=== PATIENT | male | born 1955 | race Caucasian/White ===

== ENCOUNTER 2017-03-16 13:59 | Observation (INO) ==
[2017-03-16] MEDS ORDERED: Acetaminophen 325 MG TABLET PO ONE (15:58)
[2017-03-16] MEDS ORDERED: 0.9 % Sodium Chloride 1,000 ML IVC ONE (15:58)
[2017-03-16] MEDS ORDERED: *HR* OxyCODONE/APAP 5/325 TABLET PO ONE (16:00)
--- NOTE | 2017-03-16 16:24 | Emergency Department Note ---
Disposition Clinical Impression: Dehydration Fever Qualifiers: Fever type: unspecified Qualified Code(s): R50.9 - Fever, unspecified Disposition: Admitted As Inpatient Condition: Good General Adult HPI - General Chief complaint: ED General Medical Stated complaint: multiple complaints Time Seen by Provider: 03/16/17 15:15 Source: patient, family Mode of arrival: private vehicle Limitations: no limitations Nursing Notes Reviewed: Yes Vital Signs Reviewed: Yes - History of Present Illness HPI Narrative: Patient presents to the ED with multiple complaints. States his sugars have been running "high" over the past week after recently being diagnosed with early diabetes one month ago. States she has been checking his sugars and they have ranged anywhere from 90 to 190. He is not any medications for his diabetes yet and is trying diet control. He reports intermittent fever with a max temp of 101.8 over the past 4 days. States he has had a mild generalized headache and has muscle aches. States he has had no appetite for the past several days and has also been experiencing some chills. Reports some decreased urination but no change in color or odor. No dysuria. No abdominal pain. He has had nausea but no vomiting, diarrhea or constipation. No chest pain or shortness of breath. No URI symptoms. He does complain of some back and right shoulder pain which is chronic for him for which he takes narcotic pain medication and a muscle relaxer as needed, prescribed by his PCP, and is under the care of orthopedics. States he has been taking aspirin, Tylenol and ibuprofen which will alleviate his fever but then it will return. Denies any recent illness although he was on antibiotics for an abscessed tooth 5 weeks ago. No recent travel or sick contacts. He wears CPAP at night. He is an ex- smoker but quit 14 years ago. He rarely drinks alcohol. He does admit to occasional marijuana use with last use 1 week ago. States he is coming in because he just does not feel "right" or "well". Pain Scale: 7 - Related Data Home Medications Medication Instructions Recorded Confirmed Chlorthalidone 25 mg PO DAILY 03/16/17 03/16/17 CloNIDine HCl [Kapvay] 0.1 mg PO BID 03/16/17 03/16/17 Fenofibrate 160 mg PO DAILY 03/16/17 03/16/17 Omeprazole [PriLOSEC] 40 mg PO DAILY 03/16/17 03/16/17 Oxycodone HCl/Acetaminophen 1 each PO DAILY PRN 03/16/17 03/16/17 [Percocet 5-325 mg Tablet] Promethazine [Phenergan] 25 mg PO DAILY PRN 03/16/17 03/16/17 Symbicort 160/4.5 03/16/17 Tamsulosin HCl [Flomax] 0.4 mg PO DAILY 03/16/17 03/16/17 Tudorza Pressair 03/16/17 Zanaflex 4 mg PO DAILY PRN 03/16/17 03/16/17 Allergies Allergy/AdvReac Type Severity Reaction Status Date / Time No Known Allergies Allergy Verified 12/27/16 19:54 Constitutional: Reports: fever, chills, weakness (generalized). Denies: weight change Eyes: Denies: eye pain, eye discharge, vision change ENT ED: Denies: ear pain, throat pain, dental pain, hearing loss, epistaxis, congestion, dysphagia Cardiovascular: Denies: chest pain, palpitations, dyspnea on exertion, edema, syncope Respiratory: Denies: cough, dyspnea, wheezes, hemoptysis, stridor Gastrointestinal: Reports: nausea. Denies: abdominal pain, vomiting, diarrhea, constipation Genitourinary: Denies: urgency, dysuria, frequency, hematuria Musculoskeletal: Reports: myalgia (generalized) Integumentary: Denies: rash, abrasion, lesions Neurological: Reports: headache Psychiatric: Denies: anxiety, depression, suicidal thoughts, homicidal thoughts , auditory hallucinations, visual hallucinations Endocrine: Reports: fatigue Hematological/Lymphatic: Denies: easy bleeding, easy bruising Allergic/Immunologic: Denies: facial swelling, urticaria Past Medical History - Past Medical History Medical history: Reports: no medical history Psychiatric history: Reports: no psych history - Social History Smoking Status: Former smoker Smokeless Tobacco Status: No Alcohol use: Reports: rarely Drug use: Reports: marijuana Physical Exam - General Limitations: no limitations General appearance: alert, in no apparent distress - Head Head exam: atraumatic, normocephalic, normal inspection - Eye Eye exam: Present: normal appearance, PERRL, EOMI - ENT ENT exam: normal exam, normal oropharynx, mucous membranes dry - Neck Neck exam: Present: normal inspection, full ROM, trachea midline - Chest Chest inspection: Present: normal inspection, symmetric chest wall rise - Respiratory Respiratory exam: Present: normal lung sounds bilaterally - Cardiovascular Cardiovascular exam: Present: regular rate, normal rhythm, normal heart sounds - Abdominal Exam Abdominal exam: Present: soft, Non-Tender, normal bowel sounds. Absent: tenderness, distention, guarding, rebound, rigidity - Extremities Exam Extremities exam: Present: normal inspection, full ROM. Absent: tenderness, pedal edema - Back Exam Back exam: Present: normal inspection, full ROM. Absent: tenderness, CVA tenderness (R), CVA tenderness (L) - Neurological Exam Neurological exam: Present: alert, oriented X3, CN II-XII intact, normal gait. Absent: motor sensory deficit - Psychiatric Psychiatric exam: Present: normal affect, normal mood - Skin Skin exam: Present: warm, dry, intact, normal color Course Course Narrative: Result presents to the ED with report of elevated glucose readings, intermittent fever, headache, myalgia, chills and nausea. He is afebrile and normotensive on arrival. Physical exam is unremarkable with no obvious focal source of infection. He may have a viral syndrome. Will obtain chest x-ray and routine labs further evaluation. He does appear clinically dehydrated but is nontoxic in appearance. We will give IV fluids. Fingerstick glucose on arrival was 129. - Reevaluation(s) Reevaluation #1: Chest x-ray is negative. Laboratory studies show a leukocytosis of 14.2. The lumen is 27 and creatinine was 1.72 with no recent baseline for comparison. Serum glucose was 123. No other significant abnormalities noted on labs. Patient did report of feeling feverish again and repeat temperature check was 101.8. He was given Tylenol for the fever as well as Percocet for his persistent chronic back and shoulder pain. While there is no focus of infection found the does appear dehydrated. He is also complaining of persistent nausea. I feel he would benefit from an observation admission with continued hydration, anitbiotics and monitoring for his persistent intermittent fevers. Blood cultures have been obtained. Fever has resolved with Tylenol. Discussed all test results with patient and he is in agreement with admission, stating he still does not feel well and is not comfortable going home. I spoke to the hospitalist executive consultant, Dr. Gordillo, who has agreed to admit the patient. Will start on antibiotics. Vital Signs Temperature 99.6 F 03/16/17 14:00 Pulse Rate 94 03/16/17 14:00 Respiratory Rate 18 03/16/17 14:00 Blood Pressure 125/85 03/16/17 14:00 O2 Sat by Pulse Oximetry 97 03/16/17 14:00 Temperature 98.0 F 03/17/17 06:13 Pulse Rate 84 03/17/17 06:13 Respiratory Rate 18 03/17/17 06:13 Blood Pressure 144/79 03/17/17 06:13 O2 Sat by Pulse Oximetry 98 03/17/17 06:13 Oxygen Delivery Oxygen Delivery Room Air Medical Decision Making - Differential Diagnosis Pneumonia, UTI, viral illness - Medical Records Medical records reviewed: Yes I reviewed the patient's medical records. - Lab Data Lab results reviewed: Yes I reviewed the patient's lab results. Result diagrams: 03/17/17 05:57 03/17/17 05:57 Lab Results 03/16/17 03/16/17 03/16/17 Range/Units 15:51 16:24 16:24 WBC 14.2 H (4.3-11.1) K/mcL RBC 5.05 (4.19-5.50) M/mcL Hgb 14.2 (12.9-16.9) g/dL Hct 41.0 (37.5-50.1) % MCV 81.2 L (83.0-100.0) fL MCH 28.1 (28.0-33.3) pg MCHC 34.6 (31.6-35.5) g/dL RDW 13.1 (11.5-14.5) % Plt Count 351 (140-400) K/mcL MPV 9.9 (9.4-12.4) fL Immature Gran % 0.7 (0-4) % Seg Neutrophils % 88.6 % Lymphocytes % 1.9 % Monocytes % 8.4 % Eosinophils % 0.0 % Basophils % 0.4 % Neutrophils # 12.6 H (1.6-8.9) K/mcL Lymphocytes # 0.3 L (0.6-4.6) K/mcL Monocytes # 1.2 (0.0-1.3) K/mcL Eosinophils # 0.0 (0.0-0.6) K/mcL Basophils # 0.1 (0.0-0.2) K/mcL VBG Lactic Acid (0.5-2.2) mmol/L Sodium 134 L (136-145) mEq/L Potassium 3.2 L (3.5-4.5) mEq/L Chloride 93 L (98-109) mEq/L Carbon Dioxide 16 L (19-29) mEq/L BUN 27 H (8-26) mg/dL Creatinine 1.72 H (0.72-1.25) mg/dL Est GFR ( Amer) 49 L (> 60) Est GFR (Non-Af Amer) 41 L (> 60) BUN/Creatinine Ratio 16 (6-26) Glucose 123 H (70-99) mg/dL POC Glucose 129 H (58-89) Calculated Osmolality 284 (280-300) Calcium 9.6 (8.6-10.8) mg/dL Total Bilirubin (0.2-1.2) mg/dL Direct Bilirubin (0.0-0.5) mg/dL Indirect Bilirubin (0.0-1.2) mg/dL AST (5-34) Units/L ALT (0-55) Units/L Alkaline Phosphatase (38-126) Units/L Serum Total Protein (6.0-8.3) g/dL Albumin (3.5-5.0) g/dL Globulin (2.4-3.5) g/dL Albumin/Globulin Ratio (1.1-2.2) Lipase (8-78) Units/L Urine Color (Yellow) Urine Clarity (Clear) Urine pH (5.0-8.0) pH Units Ur Specific [place] (1.010-1.025) Urine Protein (Neg-Trace) mg/dL Urine Glucose (UA) (Normal) mg/dL Urine Ketones (Negative) mg/dL Urine Blood (Negative) Urine Nitrite (Negative) Urine Bilirubin (Negative) Urine Urobilinogen (Normal) mg/dL Ur Leukocyte Esterase (Negative) Urine Microscopic RBC (0-3) per hpf Urine Microscopic WBC (0-3) per hpf Ur Squamous Epith Cells (None-Few) per lpf Ur Renal Epithelial Cell (None-Few) per hpf Urine Bacteria (None-Few) per hpf Hyaline Casts (None-Few) per lpf Granular Casts (None Seen) per lpf Urine Mucus (Few) Ur Culture Indicated? (NO) 03/16/17 03/16/1703/16/17 Range/Units 16:24 16:38 17:57 WBC (4.3-11.1) K/mcL RBC (4.19-5.50) M/mcL Hgb (12.9-16.9) g/dL Hct (37.5-50.1) % MCV (83.0-100.0) fL MCH (28.0-33.3) pg MCHC (31.6-35.5) g/dL RDW (11.5-14.5) % Plt Count (140-400) K/mcL MPV (9.4-12.4) fL Immature Gran % (0-4) % Seg Neutrophils % % Lymphocytes % % Monocytes % % Eosinophils % % Basophils % % Neutrophils # (1.6-8.9) K/mcL Lymphocytes # (0.6-4.6) K/mcL Monocytes # (0.0-1.3) K/mcL Eosinophils # (0.0-0.6) K/mcL Basophils # (0.0-0.2) K/mcL VBG Lactic Acid 1.5 (0.5-2.2) mmol/L Sodium (136-145) mEq/L Potassium (3.5-4.5) mEq/L Chloride (98-109) mEq/L Carbon Dioxide (19-29) mEq/L BUN (8-26) mg/dL Creatinine (0.72-1.25) mg/dL Est GFR ( Amer) (> 60) Est GFR (Non-Af Amer) (> 60) BUN/Creatinine Ratio (6-26) Glucose (70-99) mg/dL POC Glucose (58-89) Calculated Osmolality (280-300) Calcium (8.6-10.8) mg/dL Total Bilirubin 0.5 (0.2-1.2) mg/dL Direct Bilirubin 0.2 (0.0-0.5) mg/dL Indirect Bilirubin 0.3 (0.0-1.2) mg/dL AST 21 (5-34) Units/L ALT 24 (0-55) Units/L Alkaline Phosphatase 65 (38-126) Units/L Serum Total Protein 7.3 (6.0-8.3) g/dL Albumin 2.7 L (3.5-5.0) g/dL Globulin 4.6 H (2.4-3.5) g/dL Albumin/Globulin Ratio 0.6 L (1.1-2.2) Lipase 10 (8-78) Units/L Urine Color Yellow (Yellow) Urine Clarity Cloudy A (Clear) Urine pH 5.5 (5.0-8.0) pH Units Ur Specific [place] 1.020 (1.010-1.025) Urine Protein 30 H (Neg-Trace) mg/dL Urine Glucose (UA) Normal (Normal) mg/dL Urine Ketones 15 H (Negative) mg/dL Urine Blood Negative (Negative) Urine Nitrite Negative (Negative) Urine Bilirubin Moderate H (Negative) Urine Urobilinogen Normal (Normal) mg/dL Ur Leukocyte Esterase Negative (Negative) Urine Microscopic RBC 0-3 (0-3) per hpf Urine Microscopic WBC 3-5 H (0-3) per hpf Ur Squamous Epith Cells Few (None-Few) per lpf Ur Renal Epithelial Cell Few (None-Few) per hpf Urine Bacteria Few (None-Few) per hpf Hyaline Casts Few (None-Few) per lpf Granular Casts Few H (None Seen) per lpf Urine Mucus Few (Few) Ur Culture Indicated? NO (NO) - Radiology Data Radiology results reviewed: Yes I reviewed the patient's radiology results. ITS Impressions Chest X-Ray 03/16/17 15:59 IMPRESSION: Negative portable study. D/ / Britney Gore Cha, MD / Britney Gore Cha, MD Interpreting Provider: Britney Gore Cha, MD
[2017-03-16 16:32] LABS: Basophils # 0.1 K/mcL (0.0-0.2); Basophils % 0.4 %; Hemoglobin 14.2 g/dL (12.9-16.9); Immature Granulocytes % 0.7 % (0-4); Lymphocytes # 0.3 K/mcL (0.6-4.6); Lymphocytes % 1.9 %; Mean Corpuscular HGB Conc 34.6 g/dL (31.6-35.5); Mean Corpuscular Hemoglobin 28.1 pg (28.0-33.3); Mean Corpuscular Volume 81.2 fL (83.0-100.0); Mean Platelet Volume 9.9 fL (9.4-12.4); Monocytes # 1.2 K/mcL (0.0-1.3); Monocytes % 8.4 %; Platelet Count 351 K/mcL (140-400); Red Blood Count 5.05 M/mcL (4.19-5.50); Red Cell Distribution Width 13.1 % (11.5-14.5); Segmented Neutrophils % 88.6 %
[2017-03-16 16:35] LABS: Neutrophils # 12.6 K/mcL (1.6-8.9)
[2017-03-16 16:47] LABS: Bilirubin,Urine Moderate (Negative); Blood,Urine Negative (Negative); Clarity,Urine Cloudy (Clear); Color,Urine Yellow (Yellow); Glucose,Urine (UA) Normal (Normal); Ketones,Urine 15 mg/dL (Negative); Leukocyte Esterase,Urine Negative (Negative); Nitrite,Urine Negative (Negative); PH,Urine 5.5 pH Units (5.0-8.0); Protein,Urine 30 mg/dL (Neg-Trace); Urobilinogen,Urine Normal (Normal)
[2017-03-16 16:54] LABS: RBC,Urine 0-3 per hpf (0-3)
[2017-03-16 16:54] LABS: Calcium 9.6 mg/dL (8.6-10.8); Potassium 3.2 mEq/L (3.5-4.5)
[2017-03-16 16:55] LABS: Bacteria,Urine Few per hpf (None-Few); Granular Casts,Urine Few per lpf (None Seen); Hyaline Casts,Urine Few per lpf (None-Few); Mucus,Urine Few (Few); Renal Epithelial Cells,Urine Few per hpf (None-Few); Squamous Epithelial Cell,Urine Few per lpf (None-Few)
[2017-03-16 18:28] LABS: Albumin 2.7 g/dL (3.5-5.0); Albumin/Globulin Ratio 0.6 (1.1-2.2); Bilirubin,Direct 0.2 mg/dL (0.0-0.5); Bilirubin,Indirect 0.3 mg/dL (0.0-1.2); Bilirubin,Total 0.5 mg/dL (0.2-1.2); Globulin 4.6 g/dL (2.4-3.5); Total Protein 7.3 g/dL (6.0-8.3)
[2017-03-16] MEDS ORDERED: Azithromycin 500 MG in D5% in Water 250 ML IVPB ONE (19:15)
[2017-03-16] MEDS ORDERED: 0.9 % Sodium Chloride 1,000 ML IVC SCH (19:15)
[2017-03-16] MEDS ORDERED: Naloxone 0.4 MG/ML INJ IVP PRN ×2 (19:15→20:28)
[2017-03-16] MEDS ORDERED: Acetaminophen 325 MG TABLET PO PRN ×2 (19:15→20:28)
[2017-03-16] MEDS ORDERED: Dextrose Gel 15 GM PO PRN ×4 (19:19→20:28)
[2017-03-16] MEDS ORDERED: D5% in Water 1,000 ML IVC PRN ×2 (19:19→20:28)
[2017-03-16] MEDS ORDERED: *HR* Dextrose 50 % in Water (Syg) 50 ML SYRINGE IVP PRN ×2 (19:19→20:28)
[2017-03-16] MEDS ORDERED: Ondansetron 4 MG/2 ML VIAL IVP ONE ×2 (20:01→20:28)
[2017-03-16] MEDS ORDERED: *HR* OxyCODONE/APAP 5/325 TABLET PO PRN (20:28)
[2017-03-16] MEDS ORDERED: Insulin LISPRO 300 UNITS/3 ML VIAL SQ SCH (21:00)
[2017-03-16] MEDS: Insulin LISPRO 300 UNITS/3 ML VIAL SQ SCH (21:53)
[2017-03-16] MEDS: cloNIDine HCl 0.1 MG TABLET PO SCH (21:57)
[2017-03-16] MEDS ORDERED: Ondansetron 4 MG/2 ML VIAL IVP PRN (22:26)
[2017-03-16] MEDS ORDERED: *HR* Promethazine 25 MG/ML VIAL IVP PRN (22:28)
[2017-03-16] MEDS: tiZANidine 4 MG TABLET PO PRN (23:07)
[2017-03-16] MEDS: 0.9 % Sodium Chloride 1,000 ML IVC SCH (23:42)
[2017-03-17] MEDS: 0.9 % Sodium Chloride 1,000 ML IVC SCH (05:08)
[2017-03-17 06:45] LABS: Basophils % 0.3 %; Hematocrit 38.7 % (37.5-50.1); Hemoglobin 13.2 g/dL (12.9-16.9); Immature Granulocytes % 1.9 % (0-4); Lymphocytes # 0.3 K/mcL (0.6-4.6); Lymphocytes % 2.2 %; Mean Corpuscular HGB Conc 34.1 g/dL (31.6-35.5); Mean Corpuscular Hemoglobin 27.9 pg (28.0-33.3); Mean Corpuscular Volume 81.8 fL (83.0-100.0); Mean Platelet Volume 9.9 fL (9.4-12.4); Monocytes # 0.6 K/mcL (0.0-1.3); Monocytes % 5.3 %; Neutrophils # 10.6 K/mcL (1.6-8.9); Platelet Count 351 K/mcL (140-400); Red Blood Count 4.73 M/mcL (4.19-5.50); Segmented Neutrophils % 90.3 %
[2017-03-17 06:49] LABS: BUN/Creatinine Ratio 20 (6-26); Blood Urea Nitrogen 29 mg/dL (8-26); Carbon Dioxide 25 mEq/L (19-29); Chloride 96 mEq/L (98-109); Glucose 173 mg/dL (70-99); Osmolality,Calculated 294 (280-300); Potassium 2.9 mEq/L (3.5-4.5); Sodium 137 mEq/L (136-145); eGFR For African Americans > 60 (> 60); eGFR For Non-African Americans 50 (> 60)
[2017-03-17] MEDS ORDERED: Insulin LISPRO 300 UNITS/3 ML VIAL SQ SCH (07:30)
--- NOTE | 2017-03-17 08:46 | Internal Med History&Physical ---
Date of Encounter: 03/17/17 Time of Encounter: 08:15 Assessment and Plan (1) Fever Current visit: Yes Status: Acute Etiology not of venous. Suspect viral origin likely. He has been started on Rocephin and Zithromax. Will recheck labs in a.m. Qualifiers: Fever type: unspecified Qualified Code(s): R50.9 - Fever, unspecified (2) Azotemia Current visit: Yes Status: Acute Suspect due to diuretic use with possible underlying chronic kidney disease. Will hold diuretics and give IV fluids and recheck labs in a.m. (3) Hypokalemia Current visit: Yes Status: Acute Probably secondary to diuretic use. We will give supplemental potassium and hold diuretics. Recheck labs in a.m. (4) Hypertension Current visit: Yes Status: Chronic Continue clonidine and monitor blood pressure. Qualifiers: Hypertension type: essential hypertension Qualified Code(s): I10 - Essential (primary) hypertension Internal Medicine - H&P: HPI Chief complaint: Fever Admitted From: Home Plans for Post Hospital Care: Home History of present illness: Mr. Hummel is a 61 year old male who came to emergency room stating he had intermittent fevers over the preceding 4 days. There was occasional sensation of chills also. He had no cough, headache, nausea, vomiting, or other infectious symptoms. He had slight worsening of his chronic back pain. He was evaluated in emergency room and found to have leukocytosis with left shift. Chest x-ray and UA were generally unremarkable. He was admitted to [facility] floor for ongoing care needs. He states he feels slightly improved at the present time. He has not had previous similar episodes. He states he did have an abscessed tooth extracted approximately 2 months ago. Past Med Surg Social Fam HX - Past Medical History Medical history: diabetes, GERD, hyperlipidemia, hypertension Psychiatric history: no psych history - Past Surgical History Surgical History: cholecystectomy, herniorrhaphy - Social History Smoking Status: Former smoker Smokeless Tobacco Status: No Alcohol use: rarely Drug use: marijuana - Family History Mother Living Status: Still Living Hx Family Cardiac Disorders: Yes (pacemaker) Internal Medicine - H&P: Meds Chlorthalidone 25 mg PO DAILY 03/16/17 [History] CloNIDine HCl [Kapvay] 0.1 mg PO BID 03/16/17 [History] Fenofibrate 160 mg PO DAILY 03/16/17 [History] Omeprazole [PriLOSEC] 40 mg PO DAILY 03/16/17 [History] Oxycodone HCl/Acetaminophen [Percocet 5-325 mg Tablet] 1 each PO DAILY PRN 03/16 [History] Promethazine [Phenergan] 25 mg PO DAILY PRN 03/16/17 [History] Symbicort 160/4.5 03/16/17 [History] Tamsulosin HCl [Flomax] 0.4 mg PO DAILY 03/16/17 [History] Tudorza Pressair 03/16/17 [History] Zanaflex 4 mg PO DAILY PRN 03/16/17 [History] 3 Allergy/AdvReac Type Severity Reaction Status Date / Time No Known Allergies Allergy Verified 12/27/16 19:54 All Systems PM: A 10-system review of systems was performed and is negative for pertinent findings except as documented above in the HPI. Review of systems: Gen.: He states his weight has decreased approximately 25 pounds in the past 5 weeks, intentionally Cardiovascular: He has history of hypertension but denies TN heart failure angina DVT or pulmonary embolus Respiratory: He smoked from age [age] up to 3 packs per day. He has a diagnosis of COPD but does not use home oxygen. He has been diagnosed with sleep apnea and uses BiPAP at bedtime GI: He has had cholecystectomy. He has been diagnosed with an NAFLD and GERD. He denies other disorders of his liver or exocrine pancreas. He states he had an unremarkable colonoscopy approximately 2006 : He has BPH symptoms. He denies known chronic kidney disease or other kidney bladder prostate disorders Neurologic: He denies large distribution strokes or seizures Endocrine: He was diagnosed with DM 2 a few weeks ago. He does not take medication at this time for the diabetes. He has hyperlipidemia but denies thyroid disease Hematology/oncology: He denies blood disorders cancers or anemia Psychiatric: He has feelings of anxiety and depression Musk skeletal: He has chronic low back pain and degenerative disc disease. He has had bilateral knee arthroscopic surgeries. - Constitutional Vitals: Temp Pulse Resp BP Pulse Ox 98.0 F 84 18 144/79 98 03/17/17 06:13 03/17/17 06:13 03/17/17 06:13 03/17/17 06:13 03/17/17 06:13 Exam: Gen.: He is a well-developed well-nourished male who appears in no acute distress HEENT: Head is atraumatic and normocephalic. Eyes: EOMI. There is no scleral icterus. Mouth: Mucosa is moist. Neck: Supple and nontender. There is no thyromegaly or adenopathy noted. Heart: Regular without murmurs gallops or ectopics Lungs: No wheezes or crackles are heard. Abdomen: Soft and nontender. No masses or guarding are noted. Extremities: There is no cyanosis edema or clubbing noted. Dorsalis pedis and posttibial pulses are 1-2 over 2 bilaterally. 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 Cranial nerves : Smile is symmetric. Forehead wrinkles bilaterally. Tongue protrudes midline. EOMI. Motor: There is no pronator drift. Cerebellar: Finger to nose is intact bilaterally. Skin: Warm and dry Internal Med - H&P Results - Labs CBC & Chem 7: 03/17/17 05:57 03/17/17 05:57 Labs: Short CBC 03/17/17 Range/Units 05:57 WBC 11.7 H (4.3-11.1) K/mcL Hgb 13.2 (12.9-16.9) g/dL Hct 38.7 (37.5-50.1) % Plt Count 351 (140-400) K/mcL [facility] 03/17/17 05:57 Sodium 137 Potassium 2.9 L Chloride 96 L Carbon Dioxide 25 BUN 29 H Creatinine 1.44 H Glucose 173 H Calcium 9.0 - VTE Reasons for not Prescribing Prophylaxis: Treatment not Indicated - Low risk for VTE
[2017-03-17] MEDS ORDERED: *HR* Promethazine 25 MG/ML VIAL IM ONE (09:31)
[2017-03-17] MEDS: 0.45 % Sodium Chloride w/KCl 20 MEQ/1,000 ML MLS IVC SCH ×2 (10:02→20:21)
[2017-03-17] MEDS: Budesonide/Formoterol 160/4.5 MDI IH SCH ×2 (10:14→22:57)
[2017-03-17] MEDS: cloNIDine HCl 0.1 MG TABLET PO SCH ×2 (10:20→20:15)
[2017-03-17] MEDS: Lactobacillus 1 EACH CAP.SPRINK PO SCH ×2 (10:20→20:15)
[2017-03-17] MEDS: tiZANidine 4 MG TABLET PO PRN (10:21)
[2017-03-17] MEDS: *HR* OxyCODONE/APAP 5/325 TABLET PO PRN (10:21)
[2017-03-17] MEDS: Fenofibrate 54 MG TABLET PO SCH (10:21)
[2017-03-17] MEDS: TUDORZA PRESSAIR PO SCH (10:23)
[2017-03-17] MEDS: Insulin LISPRO 300 UNITS/3 ML VIAL SQ SCH ×4 (10:24→20:23)
[2017-03-17 11:19] LABS: Platelet Estimate Normal (Normal); Polychromasia 1+ (Not Present)
[2017-03-17] MEDS: Azithromycin 500 MG in D5% in Water 250 ML IVPB SCH (20:14)
[2017-03-18] MEDS: 0.45 % Sodium Chloride w/KCl 20 MEQ/1,000 ML MLS IVC SCH ×3 (06:07→23:35)
[2017-03-18 06:14] LABS: Basophils # 0.1 K/mcL (0.0-0.2); Basophils % 0.5 %; Eosinophils % 0.1 %; Hematocrit 37.9 % (37.5-50.1); Immature Granulocytes % 0.8 % (0-4); Lymphocytes # 0.7 K/mcL (0.6-4.6); Lymphocytes % 7.7 %; Mean Corpuscular HGB Conc 34.3 g/dL (31.6-35.5); Mean Corpuscular Hemoglobin 27.8 pg (28.0-33.3); Mean Corpuscular Volume 81.2 fL (83.0-100.0); Mean Platelet Volume 9.5 fL (9.4-12.4); Neutrophils # 7.6 K/mcL (1.6-8.9); Platelet Count 345 K/mcL (140-400); Red Blood Count 4.67 M/mcL (4.19-5.50); Segmented Neutrophils % 79.9 %
[2017-03-18 06:31] LABS: BUN/Creatinine Ratio 19 (6-26); Blood Urea Nitrogen 21 mg/dL (8-26); Calcium 9.3 mg/dL (8.6-10.8); Carbon Dioxide 27 mEq/L (19-29); Chloride 97 mEq/L (98-109); Glucose 120 mg/dL (70-99); Magnesium 1.5 mg/dL (1.6-2.6); Osmolality,Calculated 290 (280-300); Potassium 2.6 mEq/L (3.5-4.5); Sodium 138 mEq/L (136-145); eGFR For African Americans > 60 (> 60); eGFR For Non-African Americans > 60 (> 60)
[2017-03-18] MEDS: Insulin LISPRO 300 UNITS/3 ML VIAL SQ SCH ×4 (09:12→20:44)
[2017-03-18] MEDS: Fenofibrate 54 MG TABLET PO SCH (09:28)
[2017-03-18] MEDS: Lactobacillus 1 EACH CAP.SPRINK PO SCH ×2 (09:29→20:41)
[2017-03-18] MEDS: cloNIDine HCl 0.1 MG TABLET PO SCH ×2 (09:29→20:40)
[2017-03-18] MEDS: Budesonide/Formoterol 160/4.5 MDI IH SCH ×2 (09:32→22:28)
--- NOTE | 2017-03-18 10:41 | Internal Med Progress Note ---
Date of Encounter: 03/18/17 Time of Encounter: 10:30 - Assessment and plan (1) Fever Current Visit: Yes Status: Acute Assessment and plan: March 18. Etiology not obvious. Leukocytosis now resolved and left shift improved. Continue Rocephin and Zithromax. Qualifiers: Fever type: unspecified Qualified Code(s): R50.9 - Fever, unspecified (2) Azotemia Current Visit: Yes Status: Acute Assessment and plan: March 18. Resolved (3) Hypokalemia Current Visit: Yes Status: Acute Assessment and plan: March 18. Slightly worsened despite IV and oral potassium supplementation. Will remain off diuretic and increase oral potassium. Recheck labs in a.m. (4) Hypertension Current Visit: Yes Status: Chronic Assessment and plan: March 18. Significant fluctuations noted. Remain off chlorthalidone. Continue clonidine. Qualifiers: Hypertension type: essential hypertension Qualified Code(s): I10 - Essential (primary) hypertension (5) Pulmonary nodules Current Visit: Yes Status: Acute Assessment and plan: March 18. Will order repeat chest CT - Subjective Interval history: March 18. He has no new complaints and feels better but not back to normal baseline yet. His appetite is slightly improved. - Constitutional Vitals: Temp Pulse Resp BP Pulse Ox 99.0 F 77 17 123/75 94 03/18/17 06:41 03/18/17 06:41 03/18/17 09:37 03/18/17 06:41 03/18/17 10:03 Exam: He is resting comfortably in bed and appears in no acute distress. His affect is cheerful. I reviewed his medications and lab results. I reviewed his archived reports and note chest CT May 2015 showed pulmonary nodules with repeat CT recommended in 3 months. This was not performed. Internal Medicine: Result - Labs CBC & Chem 7: 03/18/17 05:55 03/18/17 05:55 Labs: Short CBC 03/17/17 03/18/17 Range/Units 05:57 05:55 WBC 9.5 (4.3-11.1) K/mcL Hgb 13.0 (12.9-16.9) g/dL Hct 37.9 (37.5-50.1) % Plt Count 345 (140-400) K/mcL Neutrophils # 10.6 H 7.6 (1.6-8.9) K/mcL [facility] 03/18/17 05:55 Sodium 138 Potassium 2.6 L Chloride 97 L Carbon Dioxide 27 BUN 21 Creatinine 1.09 Glucose 120 H Calcium 9.3 - VTE Reasons for not Prescribing Prophylaxis: Treatment not Indicated - Low risk for VTE Consult Discharge Plan - Plan Instructions: How to Check Your Blood Sugar (GEN), Diabetic Hypoglycemia (GEN) , Managing Diabetes During Sick Days (GEN)
[2017-03-18] MEDS: TUDORZA PRESSAIR PO SCH (11:18)
[2017-03-18] MEDS: Magnesium Oxide 400 MG TABLET PO SCH ×2 (11:49→20:41)
[2017-03-18] MEDS: tiZANidine 4 MG TABLET PO PRN (16:28)
[2017-03-18] MEDS: *HR* OxyCODONE/APAP 5/325 TABLET PO PRN (16:29)
[2017-03-18 17:26] LABS: % Iron Saturation 12 % (20-55); Iron 29 mcg/dL (65-175); Transferrin 174 mg/dL (174-364)
[2017-03-18 17:48] LABS: Ferritin 1488 ng/ml (22-275)
[2017-03-18] MEDS: Azithromycin 500 MG in D5% in Water 250 ML IVPB SCH (20:41)
[2017-03-19 06:27] VITALS: BP 119/70
[2017-03-19 06:52] LABS: Basophils # 0.1 K/mcL (0.0-0.2); Basophils % 0.7 %; Eosinophils # 0.1 K/mcL (0.0-0.6); Eosinophils % 0.7 %; Hematocrit 37.3 % (37.5-50.1); Hemoglobin 12.9 g/dL (12.9-16.9); Immature Granulocytes % 0.9 % (0-4); Lymphocytes # 0.9 K/mcL (0.6-4.6); Lymphocytes % 11.4 %; Mean Corpuscular HGB Conc 34.6 g/dL (31.6-35.5); Mean Corpuscular Hemoglobin 27.9 pg (28.0-33.3); Mean Corpuscular Volume 80.6 fL (83.0-100.0); Mean Platelet Volume 9.3 fL (9.4-12.4); Monocytes # 1.1 K/mcL (0.0-1.3); Monocytes % 13.9 %; Neutrophils # 5.5 K/mcL (1.6-8.9); Platelet Count 361 K/mcL (140-400); Red Blood Count 4.63 M/mcL (4.19-5.50); Segmented Neutrophils % 72.4 %
[2017-03-19 07:10] LABS: BUN/Creatinine Ratio 15 (6-26); Blood Urea Nitrogen 14 mg/dL (8-26); Calcium 9.2 mg/dL (8.6-10.8); Carbon Dioxide 27 mEq/L (19-29); Chloride 96 mEq/L (98-109); Glucose 117 mg/dL (70-99); Osmolality,Calculated 290 (280-300); Potassium 2.7 mEq/L (3.5-4.5); Sodium 139 mEq/L (136-145); eGFR For African Americans > 60 (> 60); eGFR For Non-African Americans > 60 (> 60)
[2017-03-19] MEDS: 0.9 % Sodium Chloride 1,000 ML IVC SCH (07:50)
[2017-03-19 09:35] LABS: Hemoglobin A1C 6.6 %
--- NOTE | 2017-03-19 10:06 | Discharge Summary ---
Date of Encounter: 03/19/17 Time of Encounter: 09:50 - Discharge Diagnosis (1) Pneumonia Priority: Primary Status: Acute Qualifiers: Pneumonia type: due to unspecified organism Laterality: left Lung location: upper lobe of lung Qualified Code(s): J18.1 - Lobar pneumonia, unspecified organism (2) Pulmonary nodules Priority: Secondary Status: Acute (3) Azotemia Priority: Secondary Status: Resolved (4) Hypokalemia Priority: Secondary Status: Acute (5) Hypertension Priority: Secondary Status: Chronic Qualifiers: Hypertension type: essential hypertension Qualified Code(s): I10 - Essential (primary) hypertension - Discharge Medications Prescriptions: Cefuroxime PO [Ceftin] 500 mg PO Q12HR #10 tablet Azithromycin [Zithromax] 250 mg PO DAILY #5 tablet Lactobacillus [Culturelle] 1 each PO BID #10 cap.sprink Magnesium Oxide [Mag-Ox] 400 mg PO DAILY #7 tablet Potassium Chloride 20 meq PO BID #14 tab.er.prt Home Medications: CloNIDine HCl [Kapvay] 0.1 mg PO BID 03/16/17 [History] Fenofibrate 160 mg PO DAILY 03/16/17 [History] Omeprazole [PriLOSEC] 40 mg PO DAILY 03/16/17 [History] Oxycodone HCl/Acetaminophen [Percocet 5-325 mg Tablet] 1 each PO DAILY PRN 03/16 [History] Promethazine [Phenergan] 25 mg PO DAILY PRN 03/16/17 [History] Symbicort 160/4.5 03/16/17 [History] Tamsulosin HCl [Flomax] 0.4 mg PO DAILY 03/16/17 [History] Tudorza Pressair 03/16/17 [History] Zanaflex 4 mg PO DAILY PRN 03/16/17 [History] Azithromycin [Zithromax] 250 mg PO DAILY #5 tablet 03/19/17 [Rx] Cefuroxime PO [Ceftin] 500 mg PO Q12HR #10 tablet 03/19/17 [Rx] Lactobacillus [Culturelle] 1 each PO BID #10 cap.sprink 03/19/17 [Rx] Magnesium Oxide [Mag-Ox] 400 mg PO DAILY #7 tablet 03/19/17 [Rx] Potassium Chloride 20 meq PO BID #14 tab.er.prt 03/19/17 [Rx] Allergies/Adverse Reactions: 3 Allergy/AdvReac Type Severity Reaction Status Date / Time No Known Allergies Allergy Verified 12/27/16 19:54 Procedures/tests Complete & Pending: Procedures Performed prior 72 hours Category Date Time Status CT chest wo con [CT] Routine Cat Scan 03/18/17 10:53 Completed Date of admission: 03/16/17 19:49 Primary care physician: Lon Ruby MD - Patient Status Disposition: Home, Self-Care Condition: Good Overall status at discharge: patient is progressing back to baseline - Discharge Instructions Instructions: How to Check Your Blood Sugar (GEN), Diabetic Hypoglycemia (GEN) , Managing Diabetes During Sick Days (GEN) Follow Up With: Lon Ruby MD [Primary Care Provider] - 1 week - Diet and Activity Activity: resume usual activities as tolerated Diet: advance to your usual diet Hospital course: Mr. Hummel is a 61 year old male who came to emergency room stating he had intermittent fevers over the preceding 4 days. There was occasional sensation of chills also. He had no cough, headache, nausea, vomiting, or other infectious symptoms. He had slight worsening of his chronic back pain. He was evaluated in emergency room and found to have leukocytosis with left shift. Chest x-ray and UA were generally unremarkable. He was admitted to [facility] for ongoing care needs. Initial orders were written by the emergency room physician. I saw him on March 17 and performed a history and physical. He was started empirically on Rocephin and Zithromax for fever and leukocytosis. Chest x-ray did not show evidence of infiltrate. Chest CT was ordered to further evaluate for infection and follow-up on pulmonary nodules seen on a [address] scan. [address] showed pneumonia in the left upper lobe and lingula with trace left pleural effusion. There were multiple prominent mediastinal lymph nodes that appeared enlarged from 2015. Radiologist felt they might be reactive to the acute pneumonia and recommended a follow-up contrast enhanced chest CT be done in 3-6 months. I will let his PCP Dr. Ruby arrange this study to be done. I think would be reasonable to do the scan in 2-3 months in view of the worsening lymphadenopathy since 2015, hypokalemia, and smoking history. Chlorthalidone was discontinued and he was treated with supplement potassium for hypokalemia. Will continue potassium supplementation at discharge with a 7 day supply given of KCl. His blood pressure remained satisfactory off chlorthalidone. Magnesium level returned slightly low at 1.5. He will be given a 7 day supply of supplemental magnesium oxide at discharge. Azotemia resolved with administration of IV fluids and withholding diuretics. His BUN and creatinine were 14 and 0.95 respectively on the day of discharge. Hemoglobin A1c returned acceptable at 6.6%. Microcytosis workup returned showing iron 29, transferrin saturation 12%, transferrin 174, and ferritin 1488. Dr. Ruby can decide if a trial of ferrous sulfate is appropriate. Room air oximetry will be checked prior to discharge on a 6 minute walk. He will follow with Dr. Ruby within 1 week. - Time Spent with Patient Total time spent providing and/or coordinating discharge services: - Constitutional Vitals: Temp Pulse Resp BP Pulse Ox 98.6 F 78 16 119/70 94 03/19/17 06:24 03/19/17 06:24 03/19/17 06:24 03/19/17 06:24 03/19/17 06:24 - VTE Reasons for not Prescribing Prophylaxis: Treatment not Indicated - Low risk for VTE
[2017-03-19] MEDS: cloNIDine HCl 0.1 MG TABLET PO SCH (10:08)
[2017-03-19] MEDS: Magnesium Oxide 400 MG TABLET PO SCH (10:08)
[2017-03-19] MEDS: Lactobacillus 1 EACH CAP.SPRINK PO SCH (10:08)
[2017-03-19] MEDS: Fenofibrate 54 MG TABLET PO SCH (10:08)
[2017-03-19] MEDS: Budesonide/Formoterol 160/4.5 MDI IH SCH (10:36)
== END 2017-03-19 11:50 | disposition home or self-care (01) ==
LOC: EMEROOPIK 13:59 → INPPIK 13:59
PROVIDERS: ADMIT Internal Medicine; ATTEND Internal Medicine